=== PATIENT | male | born 1990 | race Two or more races ===

== ENCOUNTER 2024-11-22 19:32 | Inpatient (IN) | payer MEDICAID, SELFPAY ==
[2024-11-22 19:42] VITALS: BP 144/75; PULSE 96; RESP 18; TEMP 37.4; O2SAT 96
--- NOTE | 2024-11-22 19:46 | XR_ITS ---
Examination: CT abdomen with intravenous contrast CT pelvis with intravenous contrast 2-D coronal reconstructions 2-D sagittal reconstructions Date and time of exam:November 22, 2024 10:14 PM INDICATIONS: Onset right-sided abdominal pain today. CTDI: vol (mGy) 3.90 DLP: (mGycm) 192 Technique: Multiple axial sections of the abdomen and pelvis have been obtained. 64 slice high-resolution scanner used. 3 mm axial sections have been obtained, post intravenous injection 60 cc [id number] 2-D sagittal, coronal reconstructions obtained. Low dose protocols were performed. One or more of the following dose reduction techniques were used; automated exposure control, adjustment of the mA and/or KV according to patient size, use of iterative reconstruction technique. Findings: No focal liver or splenic lesions No gallstones No pancreatic or adrenal mass 1 mm mid pole nonobstructing right renal calculus, no hydronephrosis or ureteral calculi Aorta normal size Fluid-filled inflamed appendix medial to the cecum with appendicolith, axial images 138 through 118 with pericecal inflammatory change Mild free fluid in the pelvis No pelvic abscess IMPRESSION: Acute appendicitis with localized perforation, no pelvic abscess
--- NOTE | 2024-11-22 19:49 | PD.EDABDPN ---
ED Abdominal Pain RME/HPI General Chief Complaint: Abdominal Pain Stated complaint: RIGHT SIDE ABDOMINAL PAIN Time seen by provider: 11/22/24 19:46 Arrival date/time: 11/22/24 19:32 34M with no significant PMH presents to ED with 2 days of RLQ pain and some N/V and non-bloody diarrhea. Patient denies dysuria. Limitations: no limitations Related Data Allergies Allergy/AdvReac Type Severity Reaction Status Date / Time No Known Allergies Allergy Verified 11/22/24 19:36 Review of Systems Review of Systems Systems Reviewed: All systems reviewed, normal except as documented Constitutional Constitutional: Reports system reviewed and no additional complaints, except as documented, Denies fever(s) and Denies headache(s) ENT Ears, Nose, Mouth, and Throat: Denies disequilibrium and Denies headache(s) Cardiovascular Cardiovascular: Reports system reviewed and no additional complaints, except as documented, Denies chest pain and Denies dyspnea Respiratory Respiratory: Reports system reviewed and no additional complaints, except as documented, Denies cough and Denies dyspnea Gastrointestinal Gastrointestinal: Reports system reviewed and no additional complaints, except as documented, Reports as per HPI, Reports abdominal pain, Reports diarrhea, Reports nausea and Reports vomiting Neurologic Neurologic: Reports system reviewed and no additional complaints, except as documented, Denies confusion, Denies disequilibrium and Denies headache(s) Psychiatric Psychiatric: Denies confusion Past Medical History Social History SMOKING STATUS: Never smoker ED Exam General Limitations: Present no limitations General appearance: Present alert and in no apparent distress Head Head exam: Present atraumatic Eye Eye exam: Present normal appearance, PERRL and EOMI ENT ENT exam: Present normal exam, normal oropharynx and mucous membranes moist Neck Neck exam: Present normal inspection, full ROM and trachea midline Chest Chest inspection: Present normal inspection and symmetric chest wall rise Respiratory Respiratory exam: Present normal lung sounds bilaterally Cardiovascular Cardiovascular exam: Present regular rate, normal rhythm and normal heart sounds Abdominal Exam Abdominal exam: Present soft and normal bowel sounds Abdominal tenderness: Present RLQ Extremities Exam Extremities exam: Present normal inspection and full ROM Back Exam Back exam: Present normal inspection and full ROM Neurological Exam Neurological exam: Present alert, oriented X3 and CN II-XII intact Psychiatric Psychiatric exam: Present normal affect and normal mood Skin Skin exam: Present warm, dry, intact and normal color Course Quality Measures none Orders Category Date Time Status COVID-19 Screening Questionnaire NOW Care 11/22/24 23:[address] Screening NOW Care 11/22/24 19:46 Active Decision to Admit X1 Care 11/22/24 23:01 Completed Insert IV NOW Care 11/22/24 19:46 Active Consult to General Surgery Stat Cons 11/22/24 23:[address] abdomen pelvis w con Stat Exams 11/22/24 19:46 Completed CBC Stat Lab 11/22/24 20:25 Completed CMP [Comprehensive Metabolic Panel] Stat Lab 11/22/24 20:25 Completed Drug Screen,Urine Stat Lab 11/22/24 22:10 Completed Lactate (Lactic Acid) Stat Lab 11/22/24 20:25 Completed Lipase Stat Lab 11/22/24 20:25 Completed Procalcitonin Stat Lab 11/22/24 20:25 Completed Urinalysis, C/S if Indicated Stat Lab 11/22/24 22:10 Received Morphine Inj Med 11/22/24 21:51 Discontinued 5 mg IVP X1 ONE Ondansetron Inj [Zofran Inj] Med 11/22/24 19:46 Discontinued 4 mg IV X1 ONE Piper/Tazo 3.375 gm Premix [Zosyn] Med 11/22/24 22:58 Discontinued 3.375 gm in 50 ml IV X1 Sodium Chloride 0.9% 1000 ml [Ns] 1,000 ml Med 11/22/24 19:46 Discontinued IV 500 mls/hr Sodium Chloride 0.9% 1000 ml [Ns] 1,000 ml Med 11/22/24 21:33 Discontinued IV 999 mls/hr Vital Signs Vital signs: Vital Signs Temperature 99.4 F 11/22/24 19:42 Pulse Rate 96 11/22/24 19:42 Respiratory Rate 18 11/22/24 19:42 Blood Pressure 144/75 H 11/22/24 19:42 Pulse Oximetry (%) 96 11/22/24 19:42 Oxygen Delivery Method Room Air 11/22/24 19:42 O2 at 96% on RA and WNLs Abdominal Pain MDM MDM Narrative MDM Narrative:: 34M with no significant PMH presents to ED with 2 days of RLQ pain and some N/V and non-bloody diarrhea. Patient denies dysuria. Physical exam reveals RLQ tenderness. Patient is afebrile, calm, and alert. CT reveals appy w/ local perf. Moderate leukocytosis and elevated procal. Sodium mildly low. Spoke to Dr. Trevino, who will admit patient. Patient data External records reviewed:: None Clinical information provided by:: patient Social determinants that could affect healthcare access:: none Patient has the following chronic illnesses:: none How is presenting disease/condition affected by chronic disease/condition?: no chronic disease Evaluation data The following diagnostics were reviewed and interpreted by me:: lab results and radiology exam(s) Lab and/or radiology exams considered but not ordered:: ordered Interpretation Summary: above Medications / Prescriptions Medications or Prescriptions considered but not ordered:: ordered Medication administrations:: Medication Administration History Sodium Chloride (Ns) 1,000 mls @ 100 mls/hr IV .Q10H JAQUELINE Stop: 12/22/24 23:04 Last Admin: 11/22/24 23:55 Dose: 100 mls/hr Documented By: JUAN LUIS Morphine Sulfate (Morphine Sulf Inj 10 Mg/Ml Vial) 3 mg IVP Q4H PRN PRN Reason: PAIN SCALE 7-10 (Severe Discontinued Medications Sodium Chloride (Ns) 1,000 mls @ 500 mls/hr IV .Q2H ONE Stop: 11/22/24 21:45 Last Admin: 11/22/24 21:49 Dose: 500 mls/hr Documented By: JUAN LUIS Sodium Chloride (Ns) 1,000 mls @ 999 mls/hr IV .Q1H1M ONE Stop: 11/22/24 22:33 Last Infusion: 11/22/24 23:00 Dose: Infused Documented By: JUAN LUIS Admin: 11/22/24 21:47 Dose: 999 mls/hr Documented By: JUAN LUIS Piperacillin/Tazobactam/Dextrose (Zosyn) 3.375 gm in 50 mls @ 100 mls/hr IV X1 ONE Stop: 11/22/24 23:27 Last Admin: 11/22/24 23:54 Dose: 100 mls/hr Documented By: JUAN LUIS Morphine Sulfate (Morphine Sulf Inj 10 Mg/Ml Vial) 5 mg IVP X1 ONE Stop: 11/22/24 21:52 Last Admin: 11/22/24 21:54 Dose: 5 mg Documented By: UJAN LUIS Ondansetron HCl (Ondansetron Inj 2 Mg/Ml Inj 2 Ml) 4 mg IV X1 ONE; Protocol Stop: 11/22/24 19:47 Last Admin: 11/22/24 21:55 Dose: 4 mg Documented By: JUAN LUIS Ondansetron HCl (Ondansetron Inj 2 Mg/Ml Inj 2 Ml) 4 mg IV Q4H ONE; Protocol Stop: 11/22/24 23:03 above Consultations Consultation(s) initiated? (list below): No Diagnosis Differential diagnosis abdominal pain: abdominal pain, acute appendicitis, calculus of kidney, constipation, diverticulitis, gastroenteritis, pancreatitis and small bowel obstruction Most likely diagnosis given after review of the tests above:: appy Admission Indicated Admission indicated?: indicated Admission Request Was there a request for admission?: Yes Admission Attestation Admission request attestation: Discussed case with [Dr. Molina] from Hospitalist service regarding admission. Discussed patients ED course, exam findings, labs, and radiology results. The Surgeon [agrees] to accept the patient for admission. Disposition Plan Disposition Plan: Admit Discharge Plan Plan Patient Disposition: Other Care w/in Hosp ([facility]) Problem List Clinical Impression: Acute appendicitis
[2024-11-22 20:48] LABS: Lactate (Lactic Acid) 1.6 mMol/L (0.4-2.0)
[2024-11-22 20:54] LABS: Basophils # (Auto) 0.1 Thou/mm3 (0.0-0.2); Basophils % (Auto) 1 % (0-2.5); Eosinophils # (Auto) 0.1 Thou/mm3 (0.0-0.5); Eosinophils % (Auto) 0 % (0-10); Hematocrit 43.1 % (41.0-53.0); Hemoglobin 14.4 g/dL (13.5-16.0); Immature Granulocytes % (Auto) 1 % (0-0); Immature Granulocytes Auto 0.08 Thou/mm3 (0.00-0.00); Lymphocytes # (Auto) 0.6 Thou/mm3 (1.0-4.8); Lymphocytes % (Auto) 4 % (10-50); Mean Corpuscular HGB Conc 33.4 g/dl (31.0-37.0); Mean Corpuscular Hemoglobin 27.7 pg (25.0-35.0); Mean Corpuscular Volume 83 fL (80-100); Monocytes # (Auto) 0.8 Thou/mm3 (0.0-0.8); Monocytes % (Auto) 5 % (0-12); Neutrophils # (Auto) 13.9 Thou/mm3 (1.8-7.7); Neutrophils % (Auto) 90 % (37-80); Nucleated Red Blood Cell % 0 /100 WBC (0); Platelet Count 256 Thou/mm3 (140-440); RDW Standard Deviation 40.7 fL (35.1-43.9); White Blood Count 15.6 Thou/mm3 (3.8-10.6)
[2024-11-22 21:22] LABS: Alanine Aminotransferase 20 U/L (10-49); Albumin, Serum 4.7 gm/dL (3.5-5.0); Albumin/Globulin Ratio 1.4 (1.2-2.2); Alkaline Phosphatase 78 U/L (46-116); Anion Gap 9 (7-16); Aspartate Amino Transferase 26 U/L (0-34); BUN/Creatinine Ratio 19 Ratio (12-20); Bilirubin,Total 1.9 mg/dL (0.3-1.2); Blood Urea Nitrogen 17 mg/dL (9-23); Calcium 9.1 mg/dL (8.3-10.6); Calcium (Corrected) 9.1 mg/dL (8.5-10.1); Carbon Dioxide 26.5 mMol/L (20.0-31.0); Chloride 98 mMol/L (98-107); Creatinine (Component) 0.9 mg/dL (0.6-1.3); Globulin 3.4 gm/dL (2.3-3.5); Glucose 119 mg/dL (74-106); Lipase 25 U/L (12-53); Osmolality,Calculated 268 (275-295); Potassium 3.7 mMol/L (3.4-5.1); Procalcitonin 12.69 ng/ml (0.0-0.49); Sodium 133 mMol/L (136-145); Total Protein 8.1 gm/dL (5.7-8.2); eGFR > 60 See Note
[2024-11-22 21:46] VITALS: BP 156/96; PULSE 85; RESP 20; TEMP 37.8; O2SAT 97
[2024-11-22] MEDS: SODIUM CHLORIDE 0.9% 1000 ML 1,000 ML 999 ML IV (21:47)
[2024-11-22] MEDS: SODIUM CHLORIDE 0.9% 1000 ML 1,000 ML 500 ML IV (21:49)
[2024-11-22] MEDS: MORPHINE SULF INJ 10 MG/ML VIAL 5 MG IVP (21:54)
[2024-11-22] MEDS: ONDANSETRON INJ 2 MG/ML INJ 2 ML 4 MG IV (21:55)
[2024-11-22 22:45] VITALS: BP 129/85; PULSE 94; RESP 18; TEMP 37.3; O2SAT 99
[2024-11-22 23:30] LABS: Collection Type, Urine Clean Catch; WBC,Urine 0 /hpf (0-5)
[2024-11-22 23:54] LABS: Amphetamine/Methamp Scrn,U Negative (Negative); Bacteria,Urine Rare; Barbiturate Screen,Urine Negative (Negative); Benzodiazepines Screen,Urine Negative (Negative); Benzoylecgonine Screen, Ur Negative (Negative); Bilirubin,Urine Negative (Negative); Blood,Urine 2+ (Negative); Clarity,Urine Clear (Clear/Hazy); Color,Urine Yellow (Lt Yel-Yel); Culture Indicated,Urine Not Indicated; Fentanyl Screen,Urine Negative (Negative); Glucose, Urine Trace (Negative); Ketones,Urine 1+ (Negative); Leukocyte Esterase,Urine Negative (Negative); Nitrite,Urine Negative (Negative); Opiate Screen,Urine Positive (Negative); Protein,Urine 2+ (Neg - Trace); RBC,Urine 31 /hpf (0-3); Specific Gravity,Urine 1.039 (1.001-1.035); Squamous Epithelial Cell,Urine < 1 /hpf (0-5); THC Screen,Urine Negative (Negative)
[2024-11-22] MEDS: PIPER/TAZO 3.375 GM PREMIX 3.375 GM/50 ML BAG IV (23:54)
[2024-11-22] MEDS: SODIUM CHLORIDE 0.9% 1000 ML 1,000 ML 100 ML IV (23:55)
[2024-11-23] VITALS (17 sets, daily range): BP systolic 97–131; BP diastolic 50–77; PULSE 70–91; RESP 12–19; TEMP 36.1–36.9; O2SAT 95–999; BMI 21.4
--- NOTE | 2024-11-23 06:41 | ESHP_ITS ---
HPI Date of Admission 11/22/24 23:02 Chief Complaint Chief Complaint: Patient is admitted with a diagnosis of appendicitis with possible perforation HPI History of present illness revealed the patient has been sick for a couple of days associated with vomiting. The pain was over the right lower quadrant and came to the emergency room last night and was found to have acute appendicitis. Patient denies any major medical illness Review of Systems Constitutional Constitutional: Denies headache(s) ENT Ears, Nose, Mouth, and Throat: Denies disequilibrium and Denies headache(s) Neurologic Neurologic: Reports system reviewed and no additional complaints, except as documented, Denies confusion, Denies disequilibrium and Denies headache(s) Psychiatric Psychiatric: Denies confusion Past Medical History Past Medical History NEUROLOGIC: Negative Seizures CARDIAC: Negative Cardiac Disorders or Congestive Heart Failure RESPIRATORY: Negative Chronic Obstructive Pulmonary Disease (COPD) or Asthma GENITOURINARY: Negative Renal Disease ENDOCRINE: Negative Diabetes Mellitus Type 1 or Diabetes Mellitus Type 2 HEMATOLOGIC: Negative Sickle Cell Disease OTHER HISTORY: Negative Blood Transfusions, Blood Transfusion Reaction or Anesthesia Reactions Social History SMOKING STATUS: Never smoker Meds Home Medications and Allergies Allergies Allergy/AdvReac Type Severity Reaction Status Date / Time No Known Allergies Allergy Verified 11/22/24 19:36 Exam Vital Signs Temp Pulse Resp BP Pulse Ox O2 Del Method 97.2 F 86 18 112/72 97 Room Air 11/23/24 04:00 11/23/24 04:00 11/23/24 04:00 11/23/24 04:00 11/23/24 04:00 11/23/24 04:00 Narrative Exam Physical examination revealed a thin built 34-year-old male who is 4 foot 10 inches tall weighing only 102 pounds. His vital signs are normal Routine Cardiovascular Exam Comments: Sinus rhythm Routine Abdominal Exam Comments: Abdomen is flat and definite tenderness over the right flank and the right lower quadrant on the McBurney's point Routine Rectal Exam Comments: Deferred Routine Exam Comments: Deferred Results Results: Laboratory Laboratory Narrative: Laboratory work showed WBC of 15,000 with a shift to the left Results: Imaging Imaging narrative: CT scan showed acute appendicitis with possible localized perforation on the fecalith Assessment & Plan Additional Assessment Additional comments: Impression: Acute appendicitis with perforation Plan Plan: I advised the patient using multimedia coordinator that he will require appendectomy which will be decided laparoscopically. If this is unsuccessful patient may require open appendectomy. The risks of the procedure include intra-abdominal abscess injury to the internal organs and wound infection especially if it is open appendectomy. I strongly feel that this is a delayed appendicitis with perforation that may have been localized. There is considerable amount of inflammatory reaction around the cecum suggesting that it might of perforated. This was explained to the patient using multimedia coordinator but I do not know how much he understood. He has agreed to proceed with surgery. Patient has been started on Zosyn and he will be taken to the operating room now Quality Measures Quality Measures none
--- NOTE | 2024-11-23 07:59 | PD.SUROPNT ---
Date of Procedure 11/23/24 Pre Op Diagnosis Acute appendicitis Post Op Diagnosis Same Procedure Laparoscopic appendectomy Findings Patient was found to have very advanced suppurative appendicitis without any perforation. Patient had a fecalith. Procedure Description After the patient was placed in supine position and anesthesia was administered with endotracheal intubation. Abdomen was prepped with ChloraPrep solution and draped in a sterile manner. A timeout was performed and a small incision was made just above the umbilicus. Fascia was cleaned and Veress needle was inserted to obtain a pneumoperitoneum up to 15 mmHg. Then I introduced a 12 mm trocar at the umbilicus with a 10 mm camera. Patient was kept in Trendelenburg position with the left lateral tilt. Intra-abdominal organs were visualized and this showed omentum covering the right lower quadrant. A 5 mm trocar was inserted in the suprapubic area after staying away from the bladde Under direct vision. And using a laparoscopic Tatyana I move the omentum and identified the appendix. Appendix was inflamed in its entire length and was located medial to the cecum. Another 5 mm trocar was inserted in the left lower quadrant under direct vision and using Harmonic kailey I dissected the mesoappendix cauterizing the vessels. When the base of the appendix was reached this was stapled using an Endo cutter 35 power ezequiel. Then the appendix was retrieved through the Endopouch through the umbilical port. Then after irrigating and cleaning the pelvis and the right lower quadrant all the trocars were pulled out and the pneumoperitoneum was let out. Fascia was closed with interrupted 0 Ethibond and then I injected half percent Marcaine with epinephrine for analgesia. Skin was then closed with interrupted 4-0 nylon stitches and a Tegaderm dressing was applied. Patient tolerated the procedure well and returned to recovery room in stable condition. Anesthesia GETA Pathology / specimen Other (Inflamed appendix with ischemic changes) IVF Infused 500 Estimated Blood Loss 25 Condition Stable Disposition PACU Surgeon Yohannes Molina MD Surgical Staff Operation Date: 11/23/24 06:45 Case Staff Anesthesiologist: Barron Greenberg RN First Assistant: Tesha Hagan
--- NOTE | 2024-11-23 08:11 | SUR.PHASEI ---
0811: Pt. AAOx4, vitals stable, breathing unlabored, no complaint of pain or nausea, x3 dressing sites to ABD CDI, no active bleed noted, report received from MD Greenberg and Madelin TALBERT.
[2024-11-23] MEDS: MORPHINE SULF INJ 10 MG/ML VIAL 3 MG IVP ×2 (08:28→19:50)
[2024-11-23] MEDS: fentaNYL CIT INJ 50 mCg/ML AMP 2ML 25 MCG IV (08:35)
--- NOTE | 2024-11-23 08:45 | PC.NURSE ---
pt back from surgery, dressings to abd CDI, no discomfort, stable vitals
--- NOTE | 2024-11-23 08:50 | SUR.PHASEI ---
0850: Pt. AAOx4, vitals stable, breathing unlabored, no complaint of pain or nausea, x3 dressings to ABD CDI, no active bleed noted, gave report to Leah TALBERT prior to pt. transfer to room.
[2024-11-23] MEDS: SODIUM CHLORIDE 0.9% 1000 ML 1,000 ML 100 ML IV ×2 (09:52→19:00)
--- NOTE | 2024-11-23 11:01 | PC.SS ---
SS met with patient regarding his d/c plan.? Pt is alert/oriented.? Pt was admitted for Acute Appendicitis.? Pt confirmed demographic and contact information is correct on facesheet.? Pt resides with friends.? Pt ambulates independently without assistance or DME.? Pt is ok with all ADLs.? 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 Pt named his friend, Julee Lechuga medical decision maker if he is unable.? Patient?s choice is to return home upon d/c.? Pt states he friendGiancarlo, phone# [phone] will provide transportation.? Pt state he does not have PCP but is agreeable to follow up at [facility]. D/C plan:? Return home Next of Kin:? ?Julee Lechuga, friend, phone# [phone] PCP:? [facility] Address:? Correct on facesheet
--- NOTE | 2024-11-23 12:20 | CHAP ---
Patient was visited by the Spiritual Care Volunteer who prayed silently for them. (Volunteer was in the hospital from 09:55-12:20).
[2024-11-23] MEDS: PIPER/TAZO 3.375 GM PREMIX 3.375 GM/50 ML BAG IV ×2 (14:44→21:57)
[2024-11-24 04:00] VITALS: BP 112/70; PULSE 57; RESP 17; TEMP 36.8; O2SAT 100
[2024-11-24] MEDS: SODIUM CHLORIDE 0.9% 1000 ML 1,000 ML 100 ML IV (05:14)
[2024-11-24] MEDS: PIPER/TAZO 3.375 GM PREMIX 3.375 GM/50 ML BAG IV (05:14)
[2024-11-24 06:20] LABS: Basophils % (Auto) 0 % (0-2.5); Eosinophils % (Auto) 0 % (0-10); Hematocrit 36.9 % (41.0-53.0); Immature Granulocytes % (Auto) 0 % (0-0); Immature Granulocytes Auto 0.02 Thou/mm3 (0.00-0.00); Lymphocytes # (Auto) 0.8 Thou/mm3 (1.0-4.8); Lymphocytes % (Auto) 10 % (10-50); Mean Corpuscular HGB Conc 32.5 g/dl (31.0-37.0); Mean Corpuscular Hemoglobin 27.5 pg (25.0-35.0); Mean Corpuscular Volume 85 fL (80-100); Monocytes # (Auto) 0.7 Thou/mm3 (0.0-0.8); Monocytes % (Auto) 9 % (0-12); Neutrophils # (Auto) 6.1 Thou/mm3 (1.8-7.7); Neutrophils % (Auto) 81 % (37-80); Nucleated Red Blood Cell % 0 /100 WBC (0); Platelet Count 244 Thou/mm3 (140-440); RDW Standard Deviation 41.2 fL (35.1-43.9); Red Blood Count 4.36 Miln/mm3 (4.50-5.90); White Blood Count 7.5 Thou/mm3 (3.8-10.6)
[2024-11-24 08:00] VITALS: BP 124/77; PULSE 66; RESP 17; TEMP 36.8; O2SAT 99
--- NOTE | 2024-11-24 09:07 | PC.SS ---
Follow up note: Pt is on IV antibiotic. Pt will return home upon dc.
--- NOTE | 2024-11-24 10:07 | PD.SURPROG ---
Documentation for date of: 11/24/24 Subjective Subjective Brief History: History of present illness revealed the patient has been sick for a couple of days associated with vomiting. The pain was over the right lower quadrant and came to the emergency room last night and was found to have acute appendicitis. Patient denies any major medical illness Narrative: Patient is feeling better today but is complaining of incisional pain. He is passing flatus and tolerating clear liquids Exam Vital Signs Temp Pulse Resp BP Pulse Ox O2 Del Method O2 Flow Rate 98.3 F 66 17 124/77 99 Nasal Cannula 1 11/24/24 08:00 11/24/24 08:00 11/24/24 08:00 11/24/24 08:00 11/24/24 08:00 11/24/24 08:00 11/24/24 08:00 Vital signs are normal Routine Abdominal Exam Comments: Abdominal examination shows tenderness over this right lower quadrant. Bowel sounds are present actively Results Results: Laboratory Laboratory Narrative: Patient's laboratory results show normal WBC Assessment & Plan Assessment Additional comments: Impression: Satisfactory recovery following laparoscopic appendectomy Plan Plan: We shall discharge the patient today on following up in my office next week Procedures Procedures Laparoscopic appendectomy
[2024-11-24 12:00] VITALS: BP 120/72; PULSE 68; RESP 18; TEMP 36.3; O2SAT 98
[2024-11-24 15:22] VITALS: PULSE 67; RESP 18; O2SAT 99
[2024-11-24 16:00] VITALS: BP 128/84; PULSE 67; RESP 17; TEMP 36.8; O2SAT 97
--- NOTE | 2024-11-27 07:27 | ESDS_ITS ---
RE: ROBERT GEORGE : 1990 DATE OF ADMISSION: 11/23/2024 DATE OF DISCHARGE: 11/24/2024 16:45 DATE OF ADMISSION: DATE OF DISCHARGE: 11/24/2024 FINAL DIAGNOSIS: Acute appendicitis. PROCEDURE DONE: Laparoscopic appendectomy. REASON FOR ADMISSION: This patient was admitted through the emergency room because of abdominal pain of 2 days' duration and workup revealed acute appendicitis. The patient had a WBC count of 15,000 with a shift to the left. CT scan showed inflamed appendix. HOSPITAL COURSE: The patient was started on Zosyn and taken to the operating room in the lead ramp agent on 11/24/2024 when he underwent laparoscopic appendectomy. Postoperative course was uneventful and the patient was discharged on the first postoperative day. He was eating and tolerating diet and was given Vicodin for pain control and he will be seen in my office in a week. DT: 14:26:56 TT: 22:27:00 Ref: [id number] - TID: [id number]
== END 2024-11-24 16:45 | disposition home or self-care (01) | DRG 233 ==
LOC: SERX 20:06 → SERHOLD 23:48 → S3NX 11-23 00:47
PROVIDERS: Physician Assistant; Admitting Provider Surgery; Emergency Provider Emergency Medicine; Visit Provider Surgery
PROC: 0DTJ4ZZ Resection of Appendix, Percutaneous Endoscopic Approach (ICD-10-PCS; CPT 44970; principal; 2024-11-23 06:30)
DX: K35.32 Acute appendicitis with perforation, localized peritonitis, and gangrene, without abscess (principal); K56.41 Fecal impaction
CPT/HCPCS: 36415; 74177; 80053; 80307; 81001; 83605; 83690; 84145; 85025; 94664; 96361; 96365; 99285; A4649; G0378; J1100; J1885; J2250; J2270; J2405; J2543; J2704; J3010; J3490; J7030; Q9967